=== PATIENT | male | born 1980 | race Caucasian/White ===

== ENCOUNTER 2018-11-19 15:28 | Inpatient (IN) | payer OTHER ==
--- NOTE | 2018-11-19 15:50 | EDPHY ---
H & P Time Seen by Provider: 11/19/18 15:49 HPI/ROS: Chief complaint. Abdominal pain HPI. 38-year-old male presents emergency department with abdominal pain. Pain began 3 days ago in the lower abdomen. May be somewhat more on the left. No nausea or vomiting or diarrhea. Now pain is more generalized and in the upper quadrants. No similar symptoms previously. No previous abdominal surgery. It hurts to move but also hurts all the time. Denies urinary symptoms. No chest discomfort or shortness of breath. No fever ROS 10 systems were reviewed and negative with the exception of the elements mentioned in the history of present illness Past Medical/Surgical History: Anxiety Social History: , nonsmoker, no alcohol Smoking Status: Never smoked Physical Exam: General Appearance: Alert well-developed male moderate distress vital signs significant for heart rate 104. Afebrile Eyes: Pupils equal and round no pallor or injection. ENT, Mouth: Mucous membranes are moist. Respiratory: There are no retractions, lungs are clear to auscultation. Cardiovascular: Regular rate and rhythm. Gastrointestinal: Abdomen is soft and generally tender. May be somewhat worse in the left lower quadrant. Decreased bowel sounds. No masses Neurological: Awake and alert, sensory and motor exams grossly normal. Skin: Warm and dry, no rashes. Musculoskeletal: Neck is supple nontender. Extremities symmetrical, full range of motion. Psychiatric: Patient is oriented X 3, there is no agitation. Constitutional: Initial Vital Signs Temperature (C) 36.7 C 11/19/18 15:41 Heart Rate 104 H 11/19/18 15:41 Respiratory Rate 18 11/19/18 15:41 Blood Pressure 128/94 H 11/19/18 15:41 O2 Sat (%) 92 11/19/18 15:41 O2 Delivery Mode Room Air O2 (L/minute) 2 Allergies/Adverse Reactions: No Known Allergies Allergy (Unverified 11/19/18 15:40) Home Medications: Medication Instructions Recorded Lexapro 11/19/18 Medical Decision Making - Diagnostics Imaging Results: Imaging Impressions Abdomen CT 11/19/18 16:16 Impression: 1, Diverticulitis for a long segment of the sigmoid colon in the left lower anterior pelvis with multiple focal pockets of free intraperitoneal air in the mesentery in the left pelvis. No significant free fluid. 2. Possible complex cyst in the midpole right kidney. Other smaller probable renal cortical cysts in both kidneys which are too small to characterize. Consider ultrasound for further evaluation or follow up. Results called and discussed with Dr. Bryan Gonzales on 11/19/2018, 17:25. CT abdomen with IV contrast shows perforated left lower quadrant diverticulitis in the sigmoid colon. Procedures: IV normal saline. Dilaudid for pain Invanz IV ED Course/Re-evaluation: Re-evaluation at 5:25 p.m. Patient and I discussed imaging and lab results. We discussed treatment plan including recommendation for admission. Patient is currently refusing admission. He and I have discussed risks and benefits of this plan. Subsequently the patient agrees to admission I consulted and discussed the case with , Hospitalist, who agrees to the admission I consulted Dr. Lerner for surgery who will see the patient Differential Diagnosis: I considered appendicitis, small-bowel obstruction, diverticulitis - Data Points Laboratory Results: Laboratory Results 11/19/18 15:52 11/19/18 15:52 11/19/18 11/19/18 11/19/18 16:00 15:52 15:52 WBC 20.46 10^3/uL H 10^3/uL (3.80-9.50) RBC 4.14 10^6/uL L 10^6/uL (4.40-6.38) Hgb 14.1 g/dL g/dL (13.7-17.5) Hct 40.0 % % (40.0-51.0) MCV 96.6 fL fL (81.5-99.8) MCH 34.1 pg pg (27.9-34.1) MCHC 35.3 g/dL g/dL (32.4-36.7) RDW 12.8 % % (11.5-15.2) Plt Count 394 10^3/uL 10^3/uL (150-400) MPV 9.3 fL fL (8.7-11.7) Neut % (Auto) 78.4 % H % (39.3-74.2) Lymph % (Auto) 8.8 % L % (15.0-45.0) [place] % (Auto) 11.9 % % (4.5-13.0) Eos % (Auto) 0.1 % L % (0.6-7.6) Baso % (Auto) 0.3 % % (0.3-1.7) Nucleat RBC Rel Count 0.0 % % (0.0-0.2) Absolute Neuts (auto) 16.04 10^3/uL H 10^3/uL (1.70-6.50) Absolute Lymphs (auto) 1.80 10^3/uL 10^3/uL (1.00-3.00) Absolute Monos (auto) 2.43 10^3/uL H 10^3/uL (0.30-0.80) Absolute Eos (auto) 0.02 10^3/uL L 10^3/uL (0.03-0.40) Absolute Basos (auto) 0.06 10^3/uL 10^3/uL (0.02-0.10) Absolute Nucleated RBC 0.00 10^3/uL 10^3/uL (0-0.01) Immature Gran % 0.5 % % (0.0-1.1) Immature Gran # 0.10 10^3/uL 10^3/uL (0.00-0.10) RBC/WBC/PLT Morphology TNP Platelet Estimate TNP Sodium 136 mEq/L mEq/L (135-145) Potassium 3.5 mEq/L mEq/L (3.5-5.2) Chloride 104 mEq/L mEq/L (97-110) Carbon Dioxide 20 mEq/l L mEq/l (22-31) Anion Gap 12 mEq/L mEq/L (6-14) BUN 11 mg/dL mg/dL (7-23) Creatinine 0.8 mg/dL mg/dL (0.7-1.3) Estimated GFR > 60 Glucose 124 mg/dL H mg/dL (70-100) Calcium 10.0 mg/dL mg/dL (8.5-10.4) Lipase 155 IU/L IU/L (23-300) Urine Color PALE YELLOW Urine Appearance CLEAR Urine pH 6.0 (5.0-7.5) Ur Specific [place] 1.001 L (1.002-1.030) Urine Protein NEGATIVE (NEGATIVE) Urine Ketones NEGATIVE (NEGATIVE) Urine Blood NEGATIVE (NEGATIVE) Urine Nitrate NEGATIVE (NEGATIVE) Urine Bilirubin NEGATIVE (NEGATIVE) Urine Urobilinogen NEGATIVE EU EU (0.2-1.0) Ur Leukocyte Esterase NEGATIVE (NEGATIVE) Urine RBC NONE SEEN /hpf /hpf (0-3) Urine WBC 1-3 /hpf /hpf (0-3) Ur Epithelial Cells TRACE /lpf /lpf (NONE-1+) Urine Glucose NEGATIVE (NEGATIVE) Medications Given: Discontinued Medications Hydromorphone HCl (Dilaudid) 1 mg IVP EDNOW ONE Stop: 11/19/18 16:00 Last Admin: 11/19/18 17:54 Dose: 1 mg Hydromorphone HCl (Dilaudid) 1 mg IVP EDNOW ONE Stop: 11/19/18 17:50 Last Admin: 11/19/18 18:09 Dose: Not Given Sodium Chloride (Ns) 1,000 mls @ 3,000 mls/hr IV ONCE ONE Stop: 11/19/18 16:18 Last Admin: 11/19/18 16:00 Dose: 1,000 mls Sodium Chloride (Ns) 1,000 mls @ 0 mls/hr IV EDNOW ONE; Wide Open PRN Reason: Protocol Stop: 11/19/18 16:00 Last Admin: 11/19/18 17:26 Dose: Not Given Ertapenem 1 gm/ Sodium (Chloride) 100 mls @ 200 mls/hr IV EDNOW ONE PRN Reason: Protocol Stop: 11/19/18 17:56 Last Admin: 11/19/18 17:47 Dose: 100 mls Ondansetron HCl (Zofran) 4 mg IVP EDNOW ONE Stop: 11/19/18 16:00 Last Admin: 11/19/18 16:00 Dose: 4 mg Departure - Departure Disposition: [facility] Inpatient Acute Clinical Impression: Diverticulitis Condition: Fair Referrals: NONE *PRIMARY CARE P,. [Primary Care Provider] - As per Instructions
[2018-11-19] MEDS ORDERED: ONDANSETRON 4 MG/2 ML VIAL ONE (15:53)
[2018-11-19] MEDS ORDERED: HYDROmorphONE/DILAUDID 1 MG/ML INJ ONE (15:53)
[2018-11-19] MEDS ORDERED: ONDANSETRON 4 MG/2 ML VIAL IVP ONE (15:59)
[2018-11-19] MEDS ORDERED: NS 1,000 ML IV ONE ×2 (15:59)
[2018-11-19] MEDS: HYDROmorphONE/DILAUDID 1 MG/ML INJ IVP ONE ×2 (16:01→17:54)
[2018-11-19 16:07] LABS: PLATELET COUNT 394 10^3/uL (150-400)
[2018-11-19] MEDS ORDERED: IOPAMIDOL (ISOVUE 370) 100 ML BTL IV ONE (16:40)
[2018-11-19] MEDS ORDERED: ERTAPENEM 1 GM in NS 100 ML IV ONE (17:27)
[2018-11-19] MEDS ORDERED: HYDROmorphONE/DILAUDID 2 MG/ML INJ IVP ONE (17:49)
[2018-11-19] MEDS ORDERED: HYDROmorphONE/DILAUDID 1 MG/ML INJ IVP ONE (18:45)
[2018-11-19] MEDS ORDERED: ONDANSETRON 4 MG/2 ML VIAL IVP PRN (18:47)
[2018-11-19] MEDS ORDERED: ONDANSETRON DISINTEGRATING 4 MG TAB PO PRN (18:47)
[2018-11-19] MEDS ORDERED: ACETAMINOPHEN 325 MG TAB PO PRN (18:47)
--- NOTE | 2018-11-19 19:27 | PDCONSULT ---
Chainstitch Binder Note: #[id number] dictated surgical consult Reina Lerner MD, FACS
[2018-11-19] MEDS: LORazepam 2 MG/ML INJ IVP PRN (19:37)
--- NOTE | 2018-11-19 20:19 | GHP ---
DATE OF ADMISSION: 11/19/2018 CHIEF COMPLAINT: Abdominal pain. HISTORY OF PRESENT ILLNESS: The patient is a 38-year-old male, who presents with a three-day history of worsening crampy abdominal pain. The patient was seen in the emergency room by Dr. Bryan Gonzales, and a CT scan of the abdomen showed diverticulitis with extraluminal air. Surgical consultation was requested. Patient reports feeling somewhat improved after receiving narcotics in the emergency department. He has never had a similar attack in the past. A year ago had a colonoscopy because of a family history of colon cancer, and was found to have a solitary benign polyp. PAST MEDICAL HISTORY: Significant for no known drug allergies. He is a nonsmoker. He admits to significant alcohol use, escalating in the past 6 months, when he was from his , and children. MEDICATIONS: 1. Lexapro 10 mg p.o. at bedtime. 2. Ibuprofen 400 mg p.o. three times daily. 3. Omeprazole 10 mg p.o. daily. SOCIAL HISTORY: Patient is in the process of reestablishing a relationship with his , and children. He lives here in [place], and they live in [place]. 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 REVIEW OF SYSTEMS: Significant for history of PTSD, and depression. The patient has had no nausea, vomiting, diarrhea. In fact, he reports his stools have been hard, and constipation has been a worsening issue for him over the past 6 months. FAMILY HISTORY: Significant for colon cancer in the patient's grandfather. PHYSICAL EXAMINATION: GENERAL: Reveals a well-developed, well-nourished young man in mild distress. VITALS: Blood pressure is 150/97, heart rate is 102, respiratory rate 20, O2 saturation is 95% on room air, temperature is 37.7. HEENT: There is no scleral icterus. NECK: Supple without adenopathy. Trachea is midline. CHEST: Clear to auscultation. HEART: Regular in rate and rhythm. ABDOMEN: Protuberant with hypoactive bowel sounds. There is focal tenderness in the left lower quadrant, and suprapubic region, with mild guarding. There is no rebound tenderness. RECTAL: Exam was not repeated. There is no inguinal mass, adenopathy, or hernia. LABORATORY: WBC is 20.46, hemoglobin 14.1, hematocrit 40.0, platelets 394,000. Sodium is 136, potassium 3.5, chloride 104, bicarb 20, BUN 11, creatinine 0.8 , glucose 124, calcium 10.0, lipase 155. Urinalysis is remarkable for specific gravity of 1.001, pH is 6, 1 to 3 WBCs, and no RBCs noted. IMAGING: CT scan was reviewed, and shows sigmoid inflammation, and pericolonic fat stranding. There is evidence of air trapped within the sigmoid mesentery, but no free air in the peritoneal cavity, or free fluid. Numerous diverticula are present within the distal descending sigmoid colon to the peritoneal reflection. There are small renal cortical cysts bilaterally. Liver is unremarkable, as is the pancreas and spleen. IMPRESSION: 1. Acute diverticulitis with focal perforation, evidence of localized peritonitis. 2. History of posttraumatic stress disorder, and depression. 3. bilateral renal cortical cysts, confirmation with renal ultrasound recommended 4. Significant alcohol RECOMMENDATIONS: I agree with management by intravenous antibiotics, intravenous fluids. Would recommend a clear liquid diet, and if the patient shows no clinical worsening, advance him to a low-fiber diet, and oral antibiotics. If patient shows progressive worsening, he ultimately could require surgery during his index episode of diverticulitis, though I would think this would be less likely. Copy requested to: Dr. Cristian Gonzales #: [id number]/MODL MTDD
[2018-11-19] MEDS: HYDROmorphONE/DILAUDID 1 MG/ML INJ IVP PRN (20:50)
[2018-11-19] MEDS: PROMETHAZINE HCL 25 MG/ML INJ IVP PRN (20:51)
[2018-11-19] MEDS: NS 1,000 ML IV SCH (20:51)
--- NOTE | 2018-11-19 23:17 | PDGENHP ---
History and Physical - Chief Complaint abdominal pain - History of Present Illness Patient is a 38 year old man with limited PMH other than PTSD presenting with 3 days of lower abdominal pain, he notes it is somewhat diffuse, perhaps worse on the left. It is severe and radiates to his back, he has been unable to eat due to the pain. He has never had similar sxs in the past. He thought it was due to constipation and so tried things at home like gas-x and even a suppository without benefit. He has not been passing gas and has not had a bm for the last couple of days. Prior to this starting he felt well without any health issues. History Information - Allergies/Home Medication List Allergies/Adverse Reactions: No Known Allergies Allergy (Unverified 11/19/18 15:40) Home Medications: Escitalopram Oxalate [Lexapro] 10 mg PO HS 11/19/18 [Last Taken Unknown] Ibuprofen [Motrin (*)] 400 mg PO TID PRN 11/19/18 [Last Taken 11/19/18] Omeprazole 10 mg PO DAILY 11/19/18 [Last Taken 11/19/18] I have personally reviewed and updated: family history, medical history, social history, surgical history - Past Medical History GERD, psychiatric history (ptsd) - Surgical History Reports: no pertinent surgical hx - Family History Positive for: cancer (colon cancer) - Social History Smoking Status: Never smoked Alcohol Use: Occasionally Drug Use: None Additional social history: patient is a combat , served in [place] Review of Systems Review of Systems: ROS: 10pt was reviewed & negative except for what was stated in HPI & below Physical Exam Physical Exam: Temp Pulse Resp BP Pulse Ox 36.8 C 103 H 16 119/78 94 11/19/18 20:17 11/19/18 20:17 11/19/18 20:17 11/19/18 20:17 11/19/18 20:17 O2 (L/minute) 2 Constitutional: appears nourished, uncomfortable Eyes: PERRL, anicteric sclera Ears, Nose, Mouth, Throat: moist mucous membranes, hearing normal Cardiovascular: no murmur, rub, or gallop, tachycardia, No edema Respiratory: no respiratory distress, no rales or rhonchi Gastrointestinal: tenderness, guarding, No normoactive bowel sounds, No rebound Genitourinary: no bladder tenderness Skin: warm, normal color Musculoskeletal: full muscle strength, no muscle tenderness Neurologic: AAOx3 Psychiatric: interacting appropriately, not anxious, not encephalopathic Lab Data & Imaging Review 11/19/18 15:52 11/19/18 15:52 WBC 20.46 10^3/uL (3.80-9.50) H 11/19/18 15:52 RBC 4.14 10^6/uL (4.40-6.38) L 11/19/18 15:52 Hgb 14.1 g/dL (13.7-17.5) 11/19/18 15:52 Hct 40.0 % (40.0-51.0) 11/19/18 15:52 MCV 96.6 fL (81.5-99.8) 11/19/18 15:52 MCH 34.1 pg (27.9-34.1) 11/19/18 15:52 MCHC 35.3 g/dL (32.4-36.7) 11/19/18 15:52 RDW 12.8 % (11.5-15.2) 11/19/18 15:52 Plt Count 394 10^3/uL (150-400) 11/19/18 15:52 MPV 9.3 fL (8.7-11.7) 11/19/18 15:52 Neut % (Auto) 78.4 % (39.3-74.2) H 11/19/18 15:52 Lymph % (Auto) 8.8 % (15.0-45.0) L 11/19/18 15:52 [place] % (Auto) 11.9 % (4.5-13.0) 11/19/18 15:52 Eos % (Auto) 0.1 % (0.6-7.6) L 11/19/18 15:52 Baso % (Auto) 0.3 % (0.3-1.7) 11/19/18 15:52 Nucleat RBC Rel Count 0.0 % (0.0-0.2) 11/19/18 15:52 Absolute Neuts (auto) 16.04 10^3/uL (1.70-6.50) H 11/19/18 15:52 Absolute Lymphs (auto) 1.80 10^3/uL (1.00-3.00) 11/19/18 15:52 Absolute Monos (auto) 2.43 10^3/uL (0.30-0.80) H 11/19/18 15:52 Absolute Eos (auto) 0.02 10^3/uL (0.03-0.40) L 11/19/18 15:52 Absolute Basos (auto) 0.06 10^3/uL (0.02-0.10) 11/19/18 15:52 Absolute Nucleated RBC 0.00 10^3/uL (0-0.01) 11/19/18 15:52 Immature Gran % 0.5 % (0.0-1.1) 11/19/18 15:52 Immature Gran # 0.10 10^3/uL (0.00-0.10) 11/19/18 15:52 RBC/WBC/PLT Morphology TNP 11/19/18 15:52 Platelet Estimate TNP 11/19/18 15:52 Sodium 136 mEq/L (135-145) 11/19/18 15:52 Potassium 3.5 mEq/L (3.5-5.2) 11/19/18 15:52 Chloride 104 mEq/L (97-110) 11/19/18 15:52 Carbon Dioxide 20 mEq/l (22-31) L 11/19/18 15:52 Anion Gap 12 mEq/L (6-14) 11/19/18 15:52 BUN 11 mg/dL (7-23) 11/19/18 15:52 Creatinine 0.8 mg/dL (0.7-1.3) 11/19/18 15:52 Estimated GFR > 60 11/19/18 15:52 Glucose 124 mg/dL (70-100) H 11/19/18 15:52 Calcium 10.0 mg/dL (8.5-10.4) 11/19/18 15:52 Lipase 155 IU/L (23-300) 11/19/18 15:52 Urine Color PALE YELLOW 11/19/18 16:00 Urine Appearance CLEAR 11/19/18 16:00 Urine pH 6.0 (5.0-7.5) 11/19/18 16:00 Ur Specific [place] 1.001 (1.002-1.030) L 11/19/18 16:00 Urine Protein NEGATIVE (NEGATIVE) 11/19/18 16:00 Urine Ketones NEGATIVE (NEGATIVE) 11/19/18 16:00 Urine Blood NEGATIVE (NEGATIVE) 11/19/18 16:00 Urine Nitrate NEGATIVE (NEGATIVE) 11/19/18 16:00 Urine Bilirubin NEGATIVE (NEGATIVE) 11/19/18 16:00 Urine Urobilinogen NEGATIVE EU (0.2-1.0) 11/19/18 16:00 Ur Leukocyte Esterase NEGATIVE (NEGATIVE) 11/19/18 16:00 Urine RBC NONE SEEN /hpf (0-3) 11/19/18 16:00 Urine WBC 1-3 /hpf (0-3) 11/19/18 16:00 Ur Epithelial Cells TRACE /lpf (NONE-1+) 11/19/18 16:00 Urine Glucose NEGATIVE (NEGATIVE) 11/19/18 16:00 Visualized and Interpreted imaging results: Yes Interpretation: abd CT: diverticulitis with free air in left pelvis, complex cyst of right kidney Assessment & Plan Assessment: Diverticulitis (Acute) 38 yo M with PMH of PTSD presenting with perforated diverticulitis # acute perforated diverticulitis: patient is HD stable with evidence of free air in the left pelvis, appreciate surgical input, at this time no plans for surgical intervention. Started patient on zosyn, clear liquid diet, IVF overnight along with pain mediation and antiemetics as needed. As symptoms improve surgery recommending advancing to low fiber diet and oral abx. # renal cyst: on CT ? of complex cyst of the right kidney noted as incidental finding, will hold off on imaging and given patients distress at the time of my evaluation did not discuss this with him, could perform renal US in house or defer to outpatient work up--should discuss with him in am # PTSD: continue lexapro, sxs relatively well controlled # gerd: will continue ppi # IP status given high risk presenting complaint will require > 48 hours in house Patient new to my care. Old records reviewed and summarized as above. Care plan reviewed with ER doctor and general surgeon as above.
[2018-11-20] MEDS: LORazepam 2 MG/ML INJ IVP PRN (01:21)
[2018-11-20] MEDS: HYDROmorphONE/DILAUDID 1 MG/ML INJ IVP PRN ×3 (01:22→09:35)
[2018-11-20] MEDS: NS 1,000 ML IV SCH (03:36)
[2018-11-20] MEDS: PROMETHAZINE HCL 25 MG/ML INJ IVP PRN (04:22)
[2018-11-20 04:55] LABS: PLATELET COUNT 346 10^3/uL (150-400)
[2018-11-20] MEDS: PIPERACILLIN/TAZO 3.375 GM/DEX 50 ML IV SCH ×2 (05:05→12:12)
[2018-11-20] MEDS ORDERED: OXYCODONE/APAP 5/325 TAB PO PRN (06:41)
--- NOTE | 2018-11-20 06:50 | SOAPPROG ---
SOAP Progress Note Assessment/Plan: Assessment: diverticulitis with perforation into mesentery somewhat clinically improved with downward trend in leukocytosis and temp Plan: Continue Zosyn/clear liquids po meds 11/20/18 06:48 Subjective: ongoing pain, no flatus or BM Objective: Vital Signs Temp Pulse Resp BP Pulse Ox 37 C 89 16 118/69 95 11/20/18 01:23 11/20/18 03:35 11/20/18 03:35 11/20/18 01:23 11/20/18 03:35 Laboratory Results 11/20/18 04:27 11/20/18 04:27 11/19/18 11/20/18 11/21/18 05:59 05:59 05:59 Intake Total 3100 Output Total 500 Balance 2600 - Time Spent With Patient Time Spent With Patient: 15 - Pending Discharge Pending Discharge Within 24 Hours: No Pending Discharge Within 48 Hours: No Physical Exam - Physical Exam General Appearance: alert, moderate distress Cardiac/Chest: regular rate, rhythm Abdomen: soft, other (hypoactive bowel sounds, LLQ + suprapubic tenderness with mild guarding) Male Genitalia: deferred Rectal: deferred Skin: warm/dry Neuro/Psych: normal mood/affect, oriented x 3 ICD10 Worksheet Patient Problems: Problems Problem Status Onset Diverticulitis Acute
[2018-11-20] MEDS ORDERED: PANTOPRAZOLE SODIUM 40 MG TAB PO SCH (09:00)
[2018-11-20] MEDS ORDERED: SENNOSIDES/DOCUSATE SODIUM TAB PO SCH (09:00)
--- NOTE | 2018-11-20 10:42 | PDMN ---
Medical Necessity Medical necessity: MCG M150 diverticulitis: pt presents with acute abd pain X 3 days, severe and radiates to back, unable to eat due to pain, CT shows: acute diverticulitis with perforation, anticipate > 2 MN ongoing med nec care, further monitoring and tx.
[2018-11-20 11:56] VITALS: BP 129/76
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
--- NOTE | 2018-11-20 12:55 | ASMTDCNOTE ---
Case Management Discharge Discharge Order Complete? Answers: No Transportation Arranged Answers: Other Notes: self Discharge Comments Notes: Left AMA Date Signed: 11/20/2018 12:54 PM Electronically Signed By:Char Peoples RN
--- NOTE | 2018-11-20 19:11 | PDDCSUM ---
Discharge Summary Discharge Summary: AMA/Elopement summary: Patient is a 38-year-old male with PMH PTSD and alcohol abuse who was admitted for abdominal pain and CT scan revealed complicated acute diverticulitis with perforation into the mesentery as well as peritonitis. He was started on IV Zosyn, IV fluids, and p.r.n. IV Dilaudid. General surgery saw the patient and recommend that the patient continue to be observed in the hospital while receiving conservative medical management. He was tolerating a clear liquid diet. The next day, the patient was adamant that he needed to go home to take care of his dog. He was recommended to stay in the hospital because he is considered high risk of complications. 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 He was informed about the risks of leaving AMA, including worsening condition and . He was provided with handwritten Rx for antibiotics in case he decided to leave AMA - including Cipro 500mg po BID x 7 days and Flagyl 500mg po TID x 7 days. Patient was demanding Rx for narcotics, but this was declined and he was told to take acetaminophen if needed. He subsequently refused to sign AMA paperwork and eloped.
[2018-11-20] MEDS ORDERED: ESCITALOPRAM OXALATE 10 MG TAB PO SCH (21:00)
== END 2018-11-20 12:57 | disposition left against medical advice (07) | DRG 392 ==
LOC: F1N 19:53
PROVIDERS: ADMIT Internal Medicine; ATTEND Internal Medicine
DX: K57.20 Diverticulitis of large intestine with perforation and abscess without bleeding (principal); K21.9 Gastro-esophageal reflux disease without esophagitis; N28.1 Cyst of kidney, acquired; F32.9 Major depressive disorder, single episode, unspecified
CPT/HCPCS: 96374; J1170; J1335; J2060; J2405; J2543; J2550; Q9967

== ENCOUNTER 2019-02-16 22:46 | Emergency (ER) | payer OTHER ==
--- NOTE | 2019-02-16 22:59 | EDPHY ---
H & P Stated Complaint: ETOH withdrawal, last drink 9hrs ago, was 80 days sober, anxious,nausea Time Seen by Provider: 02/16/19 22:59 HPI/ROS: HPI CHIEF COMPLAINT: Nausea vomiting, alcohol withdraw HISTORY OF PRESENT ILLNESS: This patient is a 38-year-old male, alcoholic, with daily alcohol use, is been binge drinking vodka and [place] for the past few days. He states he was intoxicated fully for the past 2 days he stops drinking 9:00 p.m. Yesterday. States he feels like he is going to withdrawal with nausea vomiting. States prior to this he was sober for 80 days denies any chest pain or shortness of breath, denies any abdominal pain. Past Medical History: No significant medical history except for alcoholism Past Surgical History: No significant surgical history Social History: Daily alcohol use. Family History: Noncontributory ROS REVIEW OF SYSTEMS: 10 Systems were reviewed and negative with the exception of the elements mentioned in the history of present illness. Exam Constitutional triage nursing summary reviewed, vital signs reviewed, awake/ alert. Vital signs stable. Eyes normal conjunctivae and sclera, EOMI, PERRLA. HENT normal inspection, atraumatic, moist mucus membranes, no epistaxis, neck supple/ no meningismus, no raccoon eyes. Respiratory clear to auscultation bilaterally, normal breath sounds, no respiratory distress, no wheezing. Cardiovascular rate normal, regular rhythm, no murmur, no edema, distal pulses normal. Gastrointestinal soft, non-tender, no rebound, no guarding, normal bowel sounds, no distension, no pulsatile mass. Genitourinary no CVA tenderness. Musculoskeletal no midline vertebral tenderness, full range of motion, no calf swelling, no tenderness of extremities, no meningismus, good pulses, neurovascularly intact. Skin pink, warm, & dry, no rash, skin atraumatic. Neurologic awake, alert and oriented x 3, AAOx3, moves all 4 extremities equally, motor intact, sensory intact, CN II-XII intact, normal cerebellar, normal vision, normal speech. Psychiatric normal mood/affect. Heme/Lymph/Immune no lymphadenopathy. Differential Diagnosis: Includes but is not limited to in a particular order acute alcohol draw, dehydration, electrolyte disturbance, nausea vomiting from alcohol draw Medical Decision Making: Plan for this patient IV establishment IV fluid bolus , IV Ativan 0.5 mg for withdrawal, Librium p.o., electrolytes and re-evaluate. Re-evaluation: 0231AM: Patient re-evaluated this resting comfortably no acute distress. P.o. Challenge well without any vomiting. No tremors on exam. No tachycardia. Does very well here. He would like to be discharged home. He is due to go to detox tomorrow in [place]. He has arrange this himself. I did offer him to go to detox at the local center here in [place] however he has declined this. Source: Patient - Personal History Current Tetanus Diphtheria and Acellular Pertussis (TDAP): Yes - Medical/Surgical History Hx Asthma: No Hx Chronic Respiratory Disease: No Hx Diabetes: No Hx Cardiac Disease: No Hx Renal Disease: No Hx Cirrhosis: No Hx Alcoholism: No Hx HIV/AIDS: No Hx Splenectomy or Spleen Trauma: No Other PMH: ETOH abuse - Social History Smoking Status: Never smoked Constitutional: Initial Vital Signs Temperature (C) 36.9 C 02/16/19 22:51 Heart Rate 105 H 02/16/19 22:51 Respiratory Rate 18 02/16/19 22:51 Blood Pressure 122/92 H 02/16/19 22:51 O2 Sat (%) 96 02/16/19 22:51 O2 Delivery Mode Room Air Allergies/Adverse Reactions: No Known Allergies Allergy (Unverified 02/16/19 22:51) Home Medications: Medication Instructions Recorded Escitalopram Oxalate [Lexapro] 10 mg PO HS 11/19/18 Ibuprofen [Motrin (*)] 400 mg PO TID PRN 11/19/18 Medical Decision Making - Data Points Laboratory Results: Laboratory Results 02/16/19 23:16 02/16/19 23:16 02/16/19 02/16/19 23:16 23:16 WBC 8.57 10^3/uL 10^3/uL (3.80-9.50) RBC 5.07 10^6/uL 10^6/uL (4.40-6.38) Hgb 16.2 g/dL g/dL (13.7-17.5) Hct 45.4 % % (40.0-51.0) MCV 89.5 fL fL (81.5-99.8) MCH 32.0 pg pg (27.9-34.1) MCHC 35.7 g/dL g/dL (32.4-36.7) RDW 12.0 % % (11.5-15.2) Plt Count 281 10^3/uL 10^3/uL (150-400) MPV 8.8 fL fL (8.7-11.7) Neut % (Auto) 50.7 % % (39.3-74.2) Lymph % (Auto) 39.4 % % (15.0-45.0) [place] % (Auto) 8.6 % % (4.5-13.0) Eos % (Auto) 0.5 % L % (0.6-7.6) Baso % (Auto) 0.7 % % (0.3-1.7) Nucleat RBC Rel Count 0.0 % % (0.0-0.2) Absolute Neuts (auto) 4.34 10^3/uL 10^3/uL (1.70-6.50) Absolute Lymphs (auto) 3.38 10^3/uL H 10^3/uL (1.00-3.00) Absolute Monos (auto) 0.74 10^3/uL 10^3/uL (0.30-0.80) Absolute Eos (auto) 0.04 10^3/uL 10^3/uL (0.03-0.40) Absolute Basos (auto) 0.06 10^3/uL 10^3/uL (0.02-0.10) Absolute Nucleated RBC 0.00 10^3/uL 10^3/uL (0-0.01) Immature Gran % 0.1 % % (0.0-1.1) Immature Gran # 0.01 10^3/uL 10^3/uL (0.00-0.10) Sodium 140 mEq/L mEq/L (135-145) Potassium 3.4 mEq/L L mEq/L (3.5-5.2) Chloride 97 mEq/L mEq/L (97-110) Carbon Dioxide 23 mEq/l mEq/l (22-31) Anion Gap 20 mEq/L H mEq/L (6-14) BUN 13 mg/dL mg/dL (7-23) Creatinine 0.8 mg/dL mg/dL (0.7-1.3) Estimated GFR > 60 Glucose 93 mg/dL mg/dL (70-100) Calcium 11.2 mg/dL H mg/dL (8.5-10.4) Phosphorus 3.1 mg/dL mg/dL (2.5-4.5) Medications Given: Discontinued Medications Chlordiazepoxide HCl (Librium) 25 mg PO EDNOW ONE Stop: 02/16/19 23:28 Last Admin: 02/16/19 23:37 Dose: 25 mg Sodium Chloride (Ns) 1,000 mls @ 0 mls/hr IV EDNOW ONE; Wide Open PRN Reason: Protocol Stop: 02/16/19 23:05 Last Admin: 02/16/19 23:13 Dose: 1,000 mls Sodium Chloride (Ns) 1,000 mls @ 0 mls/hr IV EDNOW ONE; Wide Open PRN Reason: Protocol Stop: 02/16/19 23:05 Last Admin: 02/16/19 23:14 Dose: 1,000 mls Famotidine/Sodium Chloride (Pepcid 20 Mg (Premix)) 50 mls @ 200 mls/hr IV EDNOW ONE Stop: 02/16/19 23:18 Last Admin: 02/16/19 23:14 Dose: 50 mls Lorazepam (Ativan Injection) 0.5 mg IVP EDNOW ONE Stop: 02/16/19 23:05 Last Admin: 02/16/19 23:14 Dose: 0.5 mg Promethazine HCl (Phenergan) 6.25 mg IVP ONCE ONE Stop: 02/17/19 00:48 Last Admin: 02/17/19 01:04 Dose: 6.25 mg Departure - Departure Disposition: Home, Routine, Self-Care Clinical Impression: Alcohol withdrawal Condition: Good Instructions: Alcohol Withdrawal (ED) Referrals: NONE *PRIMARY CARE P,. [Primary Care Provider] - As per Instructions
[2019-02-16] MEDS ORDERED: NS 1,000 ML IV ONE ×2 (23:04)
[2019-02-16] MEDS ORDERED: FAMOTIDINE 20 MG/NACL 50 ML IV ONE (23:04)
[2019-02-16] MEDS ORDERED: LORazepam 2 MG/ML INJ IVP ONE (23:04)
[2019-02-16 23:26] LABS: PLATELET COUNT 281 10^3/uL (150-400)
[2019-02-16] MEDS ORDERED: chlordiazePOXIDE 25 MG CAP PO ONE (23:27)
[2019-02-17] MEDS ORDERED: ONDANSETRON 4 MG/2 ML VIAL ONE (00:36)
[2019-02-17] MEDS ORDERED: PROMETHAZINE HCL 25 MG/ML INJ IVP ONE (00:47)
[2019-02-17 03:05] VITALS: BP 119/69
== END 2019-02-17 03:03 | disposition home or self-care (01) ==
DX: R11.2 Nausea with vomiting, unspecified (principal); F10.239 Alcohol dependence with withdrawal, unspecified
CPT/HCPCS: 96365; J2060; J2405; J2550